=== PATIENT | male | born 2000 | race Hispanic/Latino ===

== ENCOUNTER 2022-03-25 13:43 | Emergency (ER) | payer SELFPAY ==
[2022-03-25] MEDS ORDERED: Bupivacaine 0.25% 10 ML VIAL ONE (15:01)
[2022-03-25] MEDS ORDERED: Lidocaine 2% PF 5 ML VIAL ONE (15:01)
[2022-03-25] MEDS ORDERED: Bacitracin 1 PK ONE ×2 (15:43→15:50)
[2022-03-25] MEDS ORDERED: Boostrix 0.5 ML (Tdap) VIAL (>/=7 yrs of age) ONE (15:43)
== END 2022-03-25 16:12 | disposition home or self-care (01) ==
LOC: ERS 13:43
DX: S62.636B Displaced fracture of distal phalanx of right little finger, initial encounter for open fracture (principal); F17.210 Nicotine dependence, cigarettes, uncomplicated
CPT/HCPCS: 12002; 90471; 90715; J2001; S0020